=== PATIENT | female | born 1945 | race Two or more races ===

== ENCOUNTER 2016-12-27 12:00 | Inpatient (IN) | payer OTHER ==
[~2016-12-27] VITALS: Ht 170.2 cm; Wt 113.9 kg
[~2016-12-27 12:00] MED LIST: GLUCOPHAGE XR500 MG
[2016-12-27] MEDS ORDERED: ASA81 MG (14:16)
[2016-12-27] MEDS ORDERED: JANUMET XR 1001 EACH (14:16)
[2016-12-27] MEDS ORDERED: TAMOXIFEN CITRA20 MG (14:17)
[2016-12-27] MEDS ORDERED: BIOTIN5000 MCG (14:17)
[2016-12-27] MEDS ORDERED: CALTRATE 600+D1 EACH (14:19)
[2017-01-02] MEDS ORDERED: Neurin-Sl Tablet Sl SL (17:16)
[2017-01-02] MEDS ORDERED: INTEGRA PLUS C1 EACH PO (17:16)
[2017-01-02] MEDS ORDERED: XARELTO15 MG PO (17:16)
[2017-01-02] MEDS ORDERED: XARELTO20 MG PO (17:16)
== END 2017-01-02 17:57 | disposition home health service (06) | DRG 175 ==
LOC: ER 12:00 → MEDJ 17:57 → SEC-K 17:57 → MEDI 18:57 → MEDJ 18:57
PROC: B246ZZZ Ultrasonography of Right and Left Heart (ICD-10-PCS; principal; 2016-12-27)
PROC: B54DZZZ Ultrasonography of Bilateral Lower Extremity Veins (ICD-10-PCS; 2016-12-27)
PROC: 4A033R1 Measurement of Arterial Saturation, Peripheral, Percutaneous Approach (ICD-10-PCS; 2016-12-27)
PROC: 3E0F7GC Introduction of Other Therapeutic Substance into Respiratory Tract, Via Natural or Artificial Opening (ICD-10-PCS; 2016-12-27)
PROC: 4A12X4Z Monitoring of Cardiac Electrical Activity, External Approach (ICD-10-PCS; 2016-12-28)
PROC: BW24Y0Z Computerized Tomography (CT Scan) of Chest and Abdomen using Other Contrast, Unenhanced and Enhanced (ICD-10-PCS; 2016-12-29)
DX: I26.99 Other pulmonary embolism without acute cor pulmonale (principal); I21.4 Non-ST elevation (NSTEMI) myocardial infarction; I82.411 Acute embolism and thrombosis of right femoral vein; I82.431 Acute embolism and thrombosis of right popliteal vein; I82.441 Acute embolism and thrombosis of right tibial vein; D68.318 Other hemorrhagic disorder due to intrinsic circulating anticoagulants, antibodies, or inhibitors; I11.9 Hypertensive heart disease without heart failure; C50.111 Malignant neoplasm of central portion of right female breast; R09.02 Hypoxemia; E86.0 Dehydration; E11.65 Type 2 diabetes mellitus with hyperglycemia; I27.29 Other secondary pulmonary hypertension

== ENCOUNTER 2017-04-16 08:05 | Outpatient (CLI) | payer OTHER ==
[~2017-04-16 08:05] MED LIST changes: +ASA81 MG; +BIOTIN5000 MCG; +CALTRATE 600+D1 EACH; +INTEGRA PLUS C1 EACH PO; +JANUMET XR 1001 EACH; +Neurin-Sl Tablet Sl SL; +TAMOXIFEN CITRA20 MG; +XARELTO15 MG PO; +XARELTO20 MG PO
== END 2017-04-16 08:22 | disposition home or self-care (01) ==
LOC: TOM 08:05
DX: I26.99 Other pulmonary embolism without acute cor pulmonale (principal)
CPT/HCPCS: 71260; Q9965

== ENCOUNTER 2017-07-16 07:20 | Outpatient (CLI) | payer OTHER | END 2017-07-16 07:33 | disposition home or self-care (01) | LOC: RAD 07:20 → MAMO-SONO 07:45 | DX: E04.2 Nontoxic multinodular goiter (principal); E03.8 Other specified hypothyroidism; M75.102 Unspecified rotator cuff tear or rupture of left shoulder, not specified as traumatic | CPT/HCPCS: 73223 ==

== ENCOUNTER 2017-10-19 09:51 | Emergency (ER) | payer OTHER ==
[~2017-10-19] VITALS: Ht 170.2 cm; Wt 86.6 kg
[2017-10-19] MEDS ORDERED: TUSSI PRES-B L120 M1 PO (14:21)
[2017-10-19] MEDS ORDERED: XANAX0.25 MG PO (14:21)
[2017-10-19] MEDS ORDERED: ZITHROMAX TRI-500 MG PO (14:21)
== END 2017-10-19 14:42 | disposition home or self-care (01) ==
LOC: ER 09:51
DX: R63.0 Anorexia (principal); G47.09 Other insomnia; J11.1 Influenza due to unidentified influenza virus with other respiratory manifestations

== ENCOUNTER 2017-12-31 07:06 | Outpatient (CLI) | payer OTHER ==
[~2017-12-31 07:06] MED LIST changes: +TUSSI PRES-B L120 M1 PO; +XANAX0.25 MG PO; +ZITHROMAX TRI-500 MG PO
== END 2017-12-31 07:41 | disposition home or self-care (01) ==
LOC: NUCLEAR 07:06
DX: I82.403 Acute embolism and thrombosis of unspecified deep veins of lower extremity, bilateral (principal)

== ENCOUNTER 2017-12-31 08:42 | Outpatient (CLI) | payer OTHER | END 2017-12-31 09:11 | disposition home or self-care (01) | LOC: RAD 08:42 | DX: J44.9 Chronic obstructive pulmonary disease, unspecified (principal); D05.80 Other specified type of carcinoma in situ of unspecified breast ==

== ENCOUNTER 2018-03-09 10:17 | Emergency (ER) | payer OTHER ==
[~2018-03-09] VITALS: Ht 170.2 cm; Wt 86.2 kg
[2018-03-09] MEDS ORDERED: NORFLEX100MG PO (14:18)
[2018-03-09] MEDS ORDERED: MEDROLPACK PO (14:18)
== END 2018-03-09 14:22 | disposition home or self-care (01) ==
LOC: ER 10:17
DX: M54.5 Low back pain (principal); M79.662 Pain in left lower leg; M79.661 Pain in right lower leg; J11.1 Influenza due to unidentified influenza virus with other respiratory manifestations

== ENCOUNTER 2018-08-11 06:19 | Outpatient (CLI) | payer OTHER | END 2018-08-11 06:26 | disposition home or self-care (01) | LOC: LAB 06:19 | DX: E55.9 Vitamin D deficiency, unspecified (principal); D05.11 Intraductal carcinoma in situ of right breast; I82.409 Acute embolism and thrombosis of unspecified deep veins of unspecified lower extremity; I26.99 Other pulmonary embolism without acute cor pulmonale ==

== ENCOUNTER 2018-08-11 08:33 | Outpatient (CLI) | payer OTHER | END 2018-08-11 08:40 | disposition home or self-care (01) | LOC: SONOGRAMA 08:33 → MAMO-SONO 10:15 | DX: N83.209 Unspecified ovarian cyst, unspecified side (principal) ==

== ENCOUNTER → 2018-08-11 | Outpatient (CLI) | payer OTHER ==
[~2018-08-11] MED LIST changes: +MEDROLPACK PO; +METHOCARBAMOL500 MG PO; +NORFLEX100MG PO
== END | disposition home or self-care (01) ==
LOC: NUCLEAR 11:20
DX: M81.0 Age-related osteoporosis without current pathological fracture (principal); M85.80 Other specified disorders of bone density and structure, unspecified site

== ENCOUNTER → 2018-11-12 | Outpatient (CLI) | payer OTHER | END | disposition home or self-care (01) | LOC: RAD 15:43 | DX: I10 Essential (primary) hypertension (principal) ==

== ENCOUNTER 2019-03-17 10:12 | Emergency (ER) | payer OTHER ==
[~2019-03-17] VITALS: Ht 170.2 cm; Wt 89.4 kg
== END 2019-03-17 13:59 | disposition home or self-care (01) ==
LOC: ER 10:12
DX: S00.83XA Contusion of other part of head, initial encounter (principal); M54.2 Cervicalgia; M62.838 Other muscle spasm; W18.09XA Striking against other object with subsequent fall, initial encounter; Y93.89 Activity, other specified; Y92.488 Other paved roadways as the place of occurrence of the external cause; Y99.8 Other external cause status

== ENCOUNTER 2019-05-13 08:06 | Outpatient (CLI) | payer OTHER | END 2019-05-13 08:18 | disposition home or self-care (01) | LOC: RAD 08:06 → TOM 08:15 → RAD 08:18 | DX: S06.5X0A Traumatic subdural hemorrhage without loss of consciousness, initial encounter (principal); I10 Essential (primary) hypertension ==

== ENCOUNTER 2019-05-27 07:28 | Outpatient (CLI) | payer OTHER | END 2019-05-27 07:30 | disposition home or self-care (01) | LOC: RAD 07:28 | DX: S22.32XA Fracture of one rib, left side, initial encounter for closed fracture (principal) ==

== ENCOUNTER → 2019-10-24 | Outpatient (CLI) | payer OTHER | END | disposition home or self-care (01) | LOC: MRI 07:17 | PROVIDERS: ATTEND Internal Medicine | DX: M54.12 Radiculopathy, cervical region (principal); M50.00 Cervical disc disorder with myelopathy, unspecified cervical region | CPT/HCPCS: 72141 ==

== ENCOUNTER 2020-03-29 13:32 | Outpatient (CLI) | payer OTHER | END 2020-03-29 13:43 | disposition home or self-care (01) | LOC: TOM 13:32 | DX: M17.12 Unilateral primary osteoarthritis, left knee (principal); M25.562 Pain in left knee ==

== ENCOUNTER 2020-05-08 07:17 | Outpatient (CLI) | payer OTHER | END 2020-05-08 07:25 | disposition home or self-care (01) | LOC: MRI 07:17 | PROVIDERS: ATTEND Orthopaedic Surgery Orthopaedic Trauma | DX: S83.242A Other tear of medial meniscus, current injury, left knee, initial encounter (principal); M22.42 Chondromalacia patellae, left knee; M71.22 Synovial cyst of popliteal space [Baker], left knee; M25.562 Pain in left knee | CPT/HCPCS: 73721 ==

== ENCOUNTER 2020-09-12 12:45 | Outpatient (CLI) | payer OTHER | END 2020-09-12 12:56 | disposition home or self-care (01) | LOC: TOM 12:45 | DX: K57.32 Diverticulitis of large intestine without perforation or abscess without bleeding (principal); M25.511 Pain in right shoulder ==

== ENCOUNTER 2020-09-20 11:20 | Outpatient (CLI) | payer OTHER | END 2020-09-20 11:28 | disposition home or self-care (01) | LOC: MRI 11:20 | PROVIDERS: ATTEND Internal Medicine | DX: M25.511 Pain in right shoulder (principal) | CPT/HCPCS: 73221 ==

== ENCOUNTER → 2020-10-05 12:53 | Outpatient (CLI) | payer OTHER | END | disposition home or self-care (01) | LOC: NUCLEAR 12:53 | PROVIDERS: ATTEND Internal Medicine | DX: M81.0 Age-related osteoporosis without current pathological fracture (principal) ==

== ENCOUNTER → 2020-10-17 07:38 | Outpatient (CLI) | payer OTHER | END | disposition home or self-care (01) | LOC: NUCLEAR 07:38 | PROVIDERS: ATTEND Internal Medicine | DX: M19.09 Primary osteoarthritis, other specified site (principal) | CPT/HCPCS: 78306; A9503 ==

== ENCOUNTER → 2020-12-19 | Outpatient (CLI) | payer OTHER | END | disposition home or self-care (01) | LOC: RAD 07:45 | PROVIDERS: ATTEND Internal Medicine Hematology & Oncology | DX: I26.99 Other pulmonary embolism without acute cor pulmonale (principal); D05.11 Intraductal carcinoma in situ of right breast; I82.409 Acute embolism and thrombosis of unspecified deep veins of unspecified lower extremity ==

== ENCOUNTER → 2020-12-21 | Outpatient (CLI) | payer OTHER | END | disposition home or self-care (01) | LOC: NUCLEAR 13:12 | PROVIDERS: ATTEND Specialist | DX: M81.0 Age-related osteoporosis without current pathological fracture (principal) ==

== ENCOUNTER 2021-02-21 14:24 | Outpatient (CLI) | payer OTHER | END 2021-02-21 14:28 | disposition home or self-care (01) | LOC: RAD 14:24 | PROVIDERS: ATTEND Specialist | DX: I10 Essential (primary) hypertension (principal); I27.89 Other specified pulmonary heart diseases ==

== ENCOUNTER 2021-02-27 05:40 | Day surgery (SDC) | payer OTHER | END 2021-02-27 15:35 | disposition home or self-care (01) | LOC: CIR.AMB 05:40 | PROVIDERS: ATTEND Specialist | DX: C54.1 Malignant neoplasm of endometrium (principal) ==

== ENCOUNTER 2021-04-05 09:39 | Outpatient (CLI) | payer OTHER | END 2021-04-05 09:47 | disposition home or self-care (01) | LOC: LAB 09:39 → NUCLEAR 04-08 09:00 | PROVIDERS: ATTEND Radiology Diagnostic Radiology | DX: C54.1 Malignant neoplasm of endometrium (principal) ==

== ENCOUNTER 2021-04-08 09:56 | Outpatient (CLI) | payer OTHER | END 2021-04-08 09:58 | disposition home or self-care (01) | LOC: MRI 09:56 | PROVIDERS: ATTEND Specialist | DX: C54.1 Malignant neoplasm of endometrium (principal) | CPT/HCPCS: 72197; A9575 ==

== ENCOUNTER → 2021-04-08 | Outpatient (CLI) | payer OTHER | END | disposition home or self-care (01) | LOC: NUCLEAR 08:36 | PROVIDERS: ATTEND Internal Medicine Hematology & Oncology | DX: I82.403 Acute embolism and thrombosis of unspecified deep veins of lower extremity, bilateral (principal); I26.99 Other pulmonary embolism without acute cor pulmonale; D05.11 Intraductal carcinoma in situ of right breast ==

== ENCOUNTER 2021-04-09 07:27 | Outpatient (CLI) | payer OTHER | END 2021-04-09 07:35 | disposition home or self-care (01) | LOC: TOM 07:27 | PROVIDERS: ATTEND Specialist | DX: C54.3 Malignant neoplasm of fundus uteri (principal); R10.84 Generalized abdominal pain | CPT/HCPCS: 74160; Q9965 ==

== ENCOUNTER 2021-05-15 15:01 | Outpatient (CLI) | payer OTHER | END 2021-05-15 15:08 | disposition home or self-care (01) | LOC: RAD 15:01 | PROVIDERS: ATTEND Specialist | DX: I27.0 Primary pulmonary hypertension (principal) ==

== ENCOUNTER 2021-05-20 08:15 | Inpatient (IN) | payer OTHER ==
[~2021-05-20] VITALS: Ht 170.2 cm; Wt 84.8 kg
[2021-05-23] MEDS ORDERED: TAMOXIFEN CITRA20 MG (08:10)
[2021-05-23] MEDS ORDERED: VITAMIN D350 MCG (08:10)
== END 2021-05-24 15:04 | disposition home or self-care (01) | DRG 735 ==
LOC: SURH 08:15 → O/R 05-22 05:45 → OB/GYN 05-22 22:40
PROVIDERS: ADMIT Specialist; ATTEND Specialist
PROC: 07TD4ZZ Resection of Aortic Lymphatic, Percutaneous Endoscopic Approach (ICD-10-PCS; 2021-05-22)
PROC: 0UT94ZZ Resection of Uterus, Percutaneous Endoscopic Approach (ICD-10-PCS; 2021-05-22)
PROC: 0UT74ZZ Resection of Bilateral Fallopian Tubes, Percutaneous Endoscopic Approach (ICD-10-PCS; 2021-05-22)
PROC: 0UT24ZZ Resection of Bilateral Ovaries, Percutaneous Endoscopic Approach (ICD-10-PCS; 2021-05-22)
PROC: 07TC4ZZ Resection of Pelvis Lymphatic, Percutaneous Endoscopic Approach (ICD-10-PCS; principal; 2021-05-22 10:15)
PROC: 3E1M38Z Irrigation of Peritoneal Cavity using Irrigating Substance, Percutaneous Approach (ICD-10-PCS; 2021-05-23)
DX: C54.1 Malignant neoplasm of endometrium (principal); Z20.822 Contact with and (suspected) exposure to COVID-19

== ENCOUNTER 2021-06-12 08:16 | Outpatient (CLI) | payer OTHER ==
[~2021-06-12 08:16] MED LIST changes: +VITAMIN D350 MCG
== END 2021-06-12 08:27 | disposition home or self-care (01) ==
LOC: TOM 08:16
PROVIDERS: ATTEND Specialist
DX: N82.1 Other female urinary-genital tract fistulae (principal)
CPT/HCPCS: 74177; Q9965

== ENCOUNTER 2021-06-27 07:27 | Outpatient (CLI) | payer OTHER | END 2021-06-27 07:38 | disposition home or self-care (01) | LOC: RX STUDY 07:27 | PROVIDERS: ATTEND Specialist | DX: N82.1 Other female urinary-genital tract fistulae (principal) | CPT/HCPCS: 51600; 74430; Q9965 ==

== ENCOUNTER 2021-07-17 07:59 | Outpatient (CLI) | payer OTHER | END 2021-07-17 08:10 | disposition home or self-care (01) | LOC: TOM 07:59 | PROVIDERS: ATTEND Internal Medicine Hematology & Oncology | DX: D05.11 Intraductal carcinoma in situ of right breast (principal); I82.409 Acute embolism and thrombosis of unspecified deep veins of unspecified lower extremity; I26.99 Other pulmonary embolism without acute cor pulmonale; C54.1 Malignant neoplasm of endometrium | CPT/HCPCS: 71260; Q9965 ==

== ENCOUNTER 2021-07-18 07:28 | Outpatient (CLI) | payer OTHER | END 2021-07-18 07:29 | disposition home or self-care (01) | LOC: NUCLEAR 07:28 | PROVIDERS: ATTEND Internal Medicine Hematology & Oncology | DX: I82.409 Acute embolism and thrombosis of unspecified deep veins of unspecified lower extremity (principal); D05.11 Intraductal carcinoma in situ of right breast; I26.99 Other pulmonary embolism without acute cor pulmonale; C54.1 Malignant neoplasm of endometrium; Z91.013 Allergy to seafood ==

== ENCOUNTER 2021-10-23 15:40 | Emergency (ER) | payer OTHER ==
[~2021-10-23] VITALS: Ht 170.2 cm; Wt 80.7 kg
[2021-10-23] MEDS ORDERED: JANUMET 50-1,01 EACH (15:58)
== END 2021-10-23 20:19 | disposition home or self-care (01) ==
LOC: ER 15:40
DX: R05.8 Other specified cough (principal); R53.81 Other malaise; E11.9 Type 2 diabetes mellitus without complications; Z79.84 Long term (current) use of oral hypoglycemic drugs; Z91.013 Allergy to seafood

== ENCOUNTER 2021-10-28 09:20 | Emergency (ER) | payer OTHER ==
[~2021-10-28] VITALS: Ht 170.2 cm; Wt 80.7 kg
[~2021-10-28 09:20] MED LIST changes: +JANUMET 50-1,01 EACH
== END 2021-10-28 12:36 | disposition home or self-care (01) ==
LOC: ER 09:20
DX: U07.1 COVID-19 (principal); Z91.013 Allergy to seafood

== ENCOUNTER 2022-05-02 07:37 | Outpatient (CLI) | payer OTHER | END 2022-05-02 07:48 | disposition home or self-care (01) | LOC: MRI 07:37 | DX: M25.571 Pain in right ankle and joints of right foot (principal); S43.011A Anterior subluxation of right humerus, initial encounter | CPT/HCPCS: 73218 ==

== ENCOUNTER → 2022-06-06 | Outpatient (CLI) | payer OTHER | END | disposition home or self-care (01) | LOC: SONOGRAMA 07:37 | PROVIDERS: ATTEND Internal Medicine Hematology & Oncology | DX: N28.89 Other specified disorders of kidney and ureter (principal); N28.9 Disorder of kidney and ureter, unspecified; D05.11 Intraductal carcinoma in situ of right breast; I82.409 Acute embolism and thrombosis of unspecified deep veins of unspecified lower extremity; I26.99 Other pulmonary embolism without acute cor pulmonale; C54.1 Malignant neoplasm of endometrium; D64.9 Anemia, unspecified; R59.0 Localized enlarged lymph nodes ==

== ENCOUNTER 2022-10-09 07:47 | Outpatient (CLI) | payer OTHER | END 2022-10-09 07:59 | disposition home or self-care (01) | LOC: RAD 07:47 | DX: D05.11 Intraductal carcinoma in situ of right breast (principal); I82.409 Acute embolism and thrombosis of unspecified deep veins of unspecified lower extremity; I26.99 Other pulmonary embolism without acute cor pulmonale; C54.1 Malignant neoplasm of endometrium; D64.9 Anemia, unspecified; R59.0 Localized enlarged lymph nodes; N28.9 Disorder of kidney and ureter, unspecified; M50.30 Other cervical disc degeneration, unspecified cervical region; M25.512 Pain in left shoulder; M25.561 Pain in right knee; M25.562 Pain in left knee; M25.522 Pain in left elbow ==

== ENCOUNTER 2022-10-16 07:09 | Outpatient (CLI) | payer OTHER | END 2022-10-16 07:21 | disposition home or self-care (01) | LOC: TOM 07:09 | PROVIDERS: ATTEND Internal Medicine Hematology & Oncology | DX: D05.11 Intraductal carcinoma in situ of right breast (principal); I82.409 Acute embolism and thrombosis of unspecified deep veins of unspecified lower extremity; I26.99 Other pulmonary embolism without acute cor pulmonale; C54.1 Malignant neoplasm of endometrium; D64.9 Anemia, unspecified; R59.0 Localized enlarged lymph nodes; N28.9 Disorder of kidney and ureter, unspecified; E11.65 Type 2 diabetes mellitus with hyperglycemia; E04.1 Nontoxic single thyroid nodule ==

== ENCOUNTER 2023-09-30 09:35 | Emergency (ER) | payer OTHER ==
[~2023-09-30] VITALS: Ht 170.2 cm; Wt 81.6 kg
[2023-09-30] MEDS ORDERED: DEXAMETHASONE SODIUM PHOSPHATE 4 MG/ML VIAL IM STA (10:35)
== END 2023-09-30 12:37 | disposition home or self-care (01) ==
LOC: ER 09:35
DX: B34.9 Viral infection, unspecified (principal); Z91.013 Allergy to seafood; Z20.822 Contact with and (suspected) exposure to COVID-19; E11.9 Type 2 diabetes mellitus without complications; Z79.84 Long term (current) use of oral hypoglycemic drugs
CPT/HCPCS: 36415; 96372; 99282; J1100

== ENCOUNTER 2023-10-21 10:45 | Outpatient (CLI) | payer OTHER | END 2023-10-21 10:53 | disposition home or self-care (01) | LOC: SONOGRAMA 10:45 | DX: M25.519 Pain in unspecified shoulder (principal); M75.50 Bursitis of unspecified shoulder; M75.100 Unspecified rotator cuff tear or rupture of unspecified shoulder, not specified as traumatic; M41.24 Other idiopathic scoliosis, thoracic region; M99.01 Segmental and somatic dysfunction of cervical region; M99.02 Segmental and somatic dysfunction of thoracic region; M99.03 Segmental and somatic dysfunction of lumbar region ==

== ENCOUNTER 2023-11-11 07:11 | Outpatient (CLI) | payer OTHER | END 2023-11-11 07:13 | disposition home or self-care (01) | LOC: TOM 07:11 | PROVIDERS: ATTEND Urology | DX: N28.1 Cyst of kidney, acquired (principal) | CPT/HCPCS: 74177; Q9965 ==

== ENCOUNTER 2024-01-21 08:40 | Outpatient (CLI) | payer OTHER | END 2024-01-21 08:52 | disposition home or self-care (01) | LOC: MRI 08:40 | PROVIDERS: ATTEND Specialist | DX: S83.242A Other tear of medial meniscus, current injury, left knee, initial encounter (principal) | CPT/HCPCS: 73718 ==

== ENCOUNTER 2024-03-21 07:24 | Emergency (ER) | payer OTHER ==
[~2024-03-21] VITALS: Ht 170.2 cm; Wt 81.6 kg
[2024-03-21] MEDS ORDERED: CEFTRIAXONE SODIUM 1,000 MG VIAL ONE (09:36)
[2024-03-21] MEDS ORDERED: LIDOCAINE HCL 1% 10ML VIAL ONE (09:36)
[2024-03-21] MEDS ORDERED: FAMOTIDINE/PF 20 MG/2 ML VIAL ONE ×2 (09:37)
[2024-03-21 11:05] LABS: HEMATOCRIT 38.9 % (36.0-45.00); HEMOGLOBIN 13.2 g/dL (12.0-15.00); MEAN CELL VOLUME 94.9 fL (80.00-100.00); MEAN CORPUSCULAR HEMOGLOBIN 32.1 pg (27.00-32.0); MEAN CORPUSCULAR HGB CONC 33.9 g/dl (32.0-36.0); PLATELET COUNT 235 K/uL (150-450); RED CELL DISTRIBUTION WIDTH 14.1 % (11.5-14.5)
== END 2024-03-21 13:07 | disposition home or self-care (01) ==
LOC: ER 07:26
PROVIDERS: General Practice
DX: L03.90 Cellulitis, unspecified (principal); E11.9 Type 2 diabetes mellitus without complications; Z79.84 Long term (current) use of oral hypoglycemic drugs; Z91.013 Allergy to seafood
CPT/HCPCS: 36415; 73630; 96365; 96372; 99283; J0696; J3490

== ENCOUNTER 2024-03-21 13:20 | Outpatient (CLI) | payer OTHER | END 2024-03-21 13:27 | disposition home or self-care (01) | LOC: RAD 13:20 | PROVIDERS: ATTEND Urology | DX: M15.0 Primary generalized (osteo)arthritis (principal); N28.1 Cyst of kidney, acquired ==

== ENCOUNTER → 2024-05-19 | Outpatient (CLI) | payer OTHER | END | disposition home or self-care (01) | LOC: MRI 07:23 | PROVIDERS: ATTEND Orthopaedic Surgery Orthopaedic Trauma | DX: M75.121 Complete rotator cuff tear or rupture of right shoulder, not specified as traumatic (principal) | CPT/HCPCS: 73220; Q9965; 73221 ==

== ENCOUNTER → 2024-07-05 | Emergency (ER) | payer OTHER ==
[~2024-07-05] VITALS: Ht 170.2 cm; Wt 81.6 kg
[~2024-07-05] MED LIST changes: +JANUMET 50-1,01 EACH PO
[2024-07-05 09:40] VITALS: BP 120/78; O2SAT 95
== END | disposition home or self-care (01) ==
LOC: ER 09:35
DX: B86 Scabies (principal); E11.9 Type 2 diabetes mellitus without complications; Z79.84 Long term (current) use of oral hypoglycemic drugs; Z91.013 Allergy to seafood

== ENCOUNTER 2024-09-02 12:36 | Emergency (ER) | payer OTHER ==
[~2024-09-02] VITALS: Ht 170.2 cm; Wt 81.6 kg
[2024-09-02] MEDS ORDERED: 0.9 % SODIUM CHLORIDE 1,000 ML IV SCH (13:15)
[2024-09-02] MEDS ORDERED: KETOROLAC TROMETHAMINE 30 MG VIAL IV ONE (13:15)
[2024-09-02] MEDS ORDERED: KETOROLAC TROMETHAMINE 30 MG VIAL ONE (14:33)
[2024-09-02 14:40] LABS: BASO % 0.5 % (0.1-1.2); EOS # 0.01 (0.04-0.54); EOS % 0.1 % (0.7-7.0); HEMATOCRIT 38.3 % (34.1-44.9); HEMOGLOBIN 12.9 g/dL (11.2-15.7); LYMPH % 12.2 % (19.3-53.1); MEAN CORPUSCULAR HEMOGLOBIN 31.5 pg (25.6-32.2); MONO # 0.59 (0.24-0.82); MONO % 5.2 % (4.7-12.5); NEUT # 9.35 (1.56-6.13); NEUT % 81.7 % (34.0-71.1); PLATELET COUNT 214 K/uL (163-369); RED BLOOD COUNT 4.09 M/uL (3.93-5.22); RED CELL DISTRIBUTION WIDTH 13.5 % (11.6-14.4)
[2024-09-02 15:26] LABS: CREATININE SERUM 0.72 mg/dL (0.55-1.02); GFR 78.14; POTASSIUM 4.58 mEq/L (3.5-5.1)
[2024-09-02 16:54] LABS: URINE BILIRRUBIN NEGATIVE (NEGATIVE); URINE BLOOD NEGATIVE; URINE GLUCOSE NEGATIVE (NEGATIVE); URINE KETONE TRACE (NEGATIVE); URINE LEUKOCYTE NEGATIVE; URINE NITRATE NEGATIVE; URINE PROTEIN NEGATIVE (NEGATIVE); URINE UROBILINOGEN 0.2 E.U./dl
[2024-09-02 16:59] LABS: URINE BACTERIA 395.2 uL (0.0-1933); URINE EPITHELIAL CELLS 8.2 uL (0.0-38.8); URINE RBC 43.7 uL (0.0-20.8); URINE WBC 9.9 uL (0.0-23.2)
[2024-09-02 17:05] LABS: URINE APPEARANCE CLEAR; URINE COLOR YELLOW
[2024-09-02] MEDS ORDERED: LEVSIN/SL0.125 MG SL (20:11)
[2024-09-02] MEDS ORDERED: PROBIOTIC1 EAC2 PO (20:11)
[2024-09-02] MEDS ORDERED: PEPCID AC20 MG PO (20:11)
[2024-09-02] MEDS ORDERED: CIPRO500 MG PO (20:11)
[2024-09-02] MEDS ORDERED: METRONIDAZOLE500 MG PO (20:11)
== END 2024-09-02 20:41 | disposition home or self-care (01) ==
LOC: ER 12:36
PROVIDERS: Emergency Medicine
DX: R10.9 Unspecified abdominal pain (principal); Z91.013 Allergy to seafood; K52.89 Other specified noninfective gastroenteritis and colitis; E11.9 Type 2 diabetes mellitus without complications; Z79.84 Long term (current) use of oral hypoglycemic drugs; K80.20 Calculus of gallbladder without cholecystitis without obstruction; K57.30 Diverticulosis of large intestine without perforation or abscess without bleeding

== ENCOUNTER 2024-11-03 07:16 | Outpatient (CLI) | payer OTHER ==
[~2024-11-03 07:16] MED LIST changes: +CIPRO500 MG PO; +LEVSIN/SL0.125 MG SL; +METRONIDAZOLE500 MG PO; +PEPCID AC20 MG PO; +PROBIOTIC1 EAC2 PO
== END 2024-11-03 07:20 | disposition home or self-care (01) ==
LOC: TOM 07:16
PROVIDERS: ATTEND Internal Medicine Hematology & Oncology
DX: D05.11 Intraductal carcinoma in situ of right breast (principal); I82.409 Acute embolism and thrombosis of unspecified deep veins of unspecified lower extremity; I26.99 Other pulmonary embolism without acute cor pulmonale; C54.1 Malignant neoplasm of endometrium; D64.9 Anemia, unspecified; R59.0 Localized enlarged lymph nodes; N28.9 Disorder of kidney and ureter, unspecified; E53.8 Deficiency of other specified B group vitamins
CPT/HCPCS: 74177; Q9965

== ENCOUNTER → 2024-11-23 09:05 | Outpatient (CLI) | payer OTHER | END | disposition home or self-care (01) | LOC: NUCLEAR 11-16 10:30 | DX: M81.0 Age-related osteoporosis without current pathological fracture (principal) ==

== ENCOUNTER 2024-12-26 08:03 | Emergency (ER) | payer OTHER ==
[~2024-12-26] VITALS: Ht 152.4 cm; Wt 81.6 kg
[2024-12-26] MEDS ORDERED: JANUMET XR 50-1 EAC1 PO (08:57)
[2024-12-26] MEDS ORDERED: KETOROLAC TROMETHAMINE 30 MG VIAL IM ONE (09:15)
[2024-12-26] MEDS ORDERED: ORPHENADRINE CITRATE 30 MG/ML AMPUL IV ONE (09:15)
[2024-12-26] MEDS ORDERED: KETOROLAC TROMETHAMINE 30 MG VIAL ONE (09:34)
[2024-12-26] MEDS ORDERED: ORPHENADRINE CITRATE 30 MG/ML AMPUL ONE (09:34)
== END 2024-12-26 11:33 | disposition home or self-care (01) ==
LOC: ER 08:04
DX: G89.11 Acute pain due to trauma (principal); R51.9 Headache, unspecified; M25.512 Pain in left shoulder; E11.9 Type 2 diabetes mellitus without complications; Z79.84 Long term (current) use of oral hypoglycemic drugs; Z91.013 Allergy to seafood
CPT/HCPCS: 70450; 72125; 73060; 96365; 96372; 99284; J1885; J2360